=== PATIENT | female | born 1960 | race Two or more races ===

== ENCOUNTER → 2024-09-01 | Outpatient (CLI) | payer BC, SELFPAY ==
--- NOTE | 2024-09-01 | XR_ITS ---
Examination: PA lateral chest 2 views TECHNIQUE: Upright PA lateral chest 2 views Exam date and time: September 01, 2024 1240 hours Comparison September 05, 2020 INDICATIONS: Coughing one week. FINDINGS: Normal heart size. Lungs are clear. Right shoulder calcific tendinitis IMPRESSION: No pneumonia or pulmonary edema
== END | disposition home or self-care (01) ==
LOC: CDIM 11:39
PROVIDERS: Referring Provider Family Medicine; Visit Provider Family Medicine
DX: J45.30 Mild persistent asthma, uncomplicated (principal)
CPT/HCPCS: 71046

== ENCOUNTER → 2025-04-08 | Outpatient (CLI) | payer BC, SELFPAY ==
--- NOTE | 2025-04-08 12:37 | XR_ITS ---
Examination: Bilateral hips, AP pelvis, 5 views Technique: AP, lateral views both hips, AP pelvis, 5 views Exam date and time: April 08, 2025 12:52 PM INDICATIONS: Bilateral hip pain several years. FINDINGS: Minimal bilateral hip osteoarthritis No right or left hip fracture or dislocation Bones of the pelvis intact IMPRESSION: Minimal bilateral hip osteoarthritis
== END | disposition home or self-care (01) ==
PROVIDERS: PCP Family Medicine; Referring Provider Family Medicine; Visit Provider Family Medicine
DX: M16.0 Bilateral primary osteoarthritis of hip (principal)
CPT/HCPCS: 73523

== ENCOUNTER 2025-05-26 13:09 | Outpatient (AMB) | payer BC, SELFPAY ==
[2025-05-26 13:35] VITALS: BP 129/84; PULSE 78; RESP 18; TEMP 36.6; O2SAT 95; BMI 35.0
--- NOTE | 2025-05-26 13:35 | ORTHONT_ITS ---
Vital signs 05/26/25 13:35 Height 1.57 m Height Method Measured Weight 86.863 kg Weight Measurement Method Standing Scale BMI 35.0 BP 129/84 Blood Pressure Source Automatic Cuff Blood Pressure Location Left Upper Arm Position Sitting Respiration 18 Pulse 78 Pulse Source Monitor Temp 97.9 F Temp Source Temporal Artery Scan Pulse Oximetry (%) 95 Oxygen Delivery Method Room Air Med/Allergies Allergies & Medications Allergies aspirin Allergy (Mild, Verified 05/26/25 13:36) ANXIETY Medication Reconciliation amlodipine 5 mg tablet 5 mg PO QDAY 09/05/20 [History Confirmed 05/26/25] levothyroxine 112 mcg capsule 112 mcg PO QDAY 09/05/20 [History Confirmed 05/26/25] losartan 100 mg tablet 100 mg PO BID 09/05/20 [History Confirmed 05/26/25] amoxicillin 875 mg-potassium clavulanate 125 mg tablet (Augmentin) 1 tab PO BID #8 tabs 09/08/20 [Rx Confirmed 05/26/25] Exam Exam Patient is in no acute distress and is cooperative with the examination today. Breathing is nonlabored. In no respiratory distress. Patient has no paraspinal tenderness. Spinal deformity cannot be appreciated. The gait of the patient is nonantalgic Bilateral extremities were evaluated and demonstrates sensation intact to light touch. Palpable pedal pulses are present. No significant edema is present. Bilateral knees were examined and the patient has full strength and range of motion.. The right hip was examined. Patient was able to flex to 90 degrees, adduct to 30 degrees, abduct to 40 degrees, internally rotate to 20 degrees, and externally rotate to 20 degrees. Patient has a negative logroll. Stinchfield is negative. The patient is nontender diffusely to touch. The left hip was examined. Patient was able to flex to 90 degrees, adduct to 30 degrees, abduct to 40 degrees, internally rotate to 20 degrees, and externally rotate to 20 degrees. Patient has a negative logroll. The stinchfield is negative. X-rays demonstrate left hip arthritis of Mild severity bilaterally. There are preserved joint spaces. There are significant degenerative changes at L5-S1 Assessment and Plan Problem List (1) Back pain: Status: Acute Plan: Patient is a pleasant 64-year-old female with a left hip pain andMild left hip arthritis. We discussed different treatment options. I do think the spine is most likely cause of the pain as the pain is primarily in her buttocks and she is significant spine issues. She has preserved logroll and does not examine like hip pathology Office Procedures GNS Level of Care Nursing/Assessment Patient Status: Established Patient Nursing Assessment/Reassesment: Medication Reconciliation, Orthostatic Vitals, Update PMH in EMR and Vital Signs Coordination of Care: Complex Care and Chronic Disease 1-5, Education Complex Pt/Fam, Consent,records obtained, informed consent, Results/Orders obtained and Staff clarify orders Established Patient Charge Established Patient Point Assignment: 105 Established Patient Point Charge: EP Level 3 (80-115) MA Intake Visit Data Collection New Patient or Established: New Patient (never been to [facility]) Reason for Visit:: LEFT HIP PAIN Seen by Clinical Staff ONLY (RN/MA): No Lead Shop Operator Required: No PCP or OBGYN visit in last 3 months: Yes Hx Now: No Do You Feel Safe at Home: Yes Authorities Contacted: N/A Questionairres Past Medical History Past Medical History Have you ever been diagnosed with any of the following: Cardiology Problems Hypercholesterolemia: Yes Congestive Heart Failure: No Hypertension: Yes Respiratory Problems Chronic Obstructive Pulmonary Disease (COPD): No Asthma: Yes Genital/Urinary Problems Renal Disease: No Endocrine Problems Diabetes Mellitus Type 1: No Diabetes Mellitus Type 2: No Hypothyroidism: Yes Subjective Visit Visit for: new patient and knee Immunization / Flu Flu Vaccine in the Last 12 Months: No Flu Vaccine Exclusion Criteria: Refused by Patient History of Present Illness Chief complaint: LEFT HIP PAIN Date of injury / onset of symptoms: 10 YEAR Patient is a pleasant 64-year-old female with left buttocks pain. She also has significant back pain. She has seen 3 spine surgeons who did not recommend surgery as they thought the disease was too severe. She reports she has signif icant back pain with using a walker and leaning forward Personal History Occupation: RETIRED Red flag PMH: none BMI Counceling provided: Yes Pain Pain level (0-10): 5 Pain location: groin and buttock Pain quality: dull Pain timing: night, increases with activity and stairs Associated signs & symptoms: none Review of Systems Review of Systems: All systems negative unless otherwise noted in HPI.
== END 2025-05-26 13:49 | disposition home or self-care (01) ==
LOC: HODSRG 13:09
PROVIDERS: PCP Family Medicine; Referring Provider Family Medicine; Supervising Provider Orthopaedic Surgery Adult Reconstructive Orthopaedic Surgery; Visit Provider Orthopaedic Surgery Adult Reconstructive Orthopaedic Surgery
DX: M54.9 Dorsalgia, unspecified (principal); M25.552 Pain in left hip; M16.12 Unilateral primary osteoarthritis, left hip; I10 Essential (primary) hypertension; E78.00 Pure hypercholesterolemia, unspecified; E03.9 Hypothyroidism, unspecified
CPT/HCPCS: 99213; G0463